=== PATIENT | male | born 1985 | race Caucasian/White ===

== ENCOUNTER 2019-04-04 09:11 | Inpatient (IN) | payer OTHER ==
[~2019-04-04] VITALS: Ht 180.3 cm; Wt 133.2 kg
[2019-04-04 09:18] VITALS: BP 177/91
[2019-04-04 09:45] LABS: ABSOLUTE BASOPHILS 0.1 thou/uL (0.0-0.2); ABSOLUTE LYMPHOCYTES 1.3 thou/uL (0.8-5.3); ABSOLUTE MONOCYTES 0.3 thou/uL (0.0-1.2); ABSOLUTE NEUTROPHILS 7.6 thou/uL (1.6-8.1); BASOPHILS 0.6 %; EOSINOPHILS 0.4 %; HEMATOCRIT 44.2 % (42.0-52.0); HEMOGLOBIN 15.3 gm/dL (14.0-18.0); LYMPHOCYTES 13.6 %; MCHC 34.7 g/dL (28.0-37.0); MCV 89.3 fL (80.0-100.0); MONOCYTES 3.4 %; MPV 8.3 fl. (7.2-11.1); NUCLEATED RBCS 0 /100WBC; PLATELET COUNT* 379 thou/uL (150-400); RBC 4.95 mil/uL (4.50-6.00); RDW-CV 13.4 % (10.5-14.5); WBC 9.3 thou/uL (4.0-11.0)
[2019-04-04 09:55] LABS: CALCIUM 8.1 mg/dL (8.5-10.1); CREATININE 1.2 mg/dL (0.6-1.3); POTASSIUM 3.3 mmol/L (3.5-5.1)
[2019-04-04 09:59] LABS: ALBUMIN 2.9 g/dL (3.4-5.0); TOTAL BILIRUBIN 0.3 mg/dL (<0.1-1.0); TOTAL PROTEIN 7.3 g/dL (6.4-8.2)
[2019-04-04 12:26] VITALS: BP 180/99
--- NOTE | 2019-04-04 14:15 | EKG ---
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
[2019-04-04 17:19] LABS: HEMATOCRIT 47.9 % (42.0-52.0); HEMOGLOBIN 16.3 gm/dL (14.0-18.0); MCH 30.6 pg (26.0-34.0); MCV 90.1 fL (80.0-100.0); MPV 8.8 fl. (7.2-11.1); RBC 5.32 mil/uL (4.50-6.00); RDW-CV 13.6 % (10.5-14.5); WBC 6.1 thou/uL (4.0-11.0)
[2019-04-04 20:38] LABS: HEMATOCRIT 51.8 % (42.0-52.0); HEMOGLOBIN 17.5 gm/dL (14.0-18.0); MCH 30.8 pg (26.0-34.0); MCHC 33.8 g/dL (28.0-37.0); MCV 90.9 fL (80.0-100.0); MPV 8.8 fl. (7.2-11.1); RBC 5.7 mil/uL (4.50-6.00); RDW-CV 13.6 % (10.5-14.5); WBC 8.1 thou/uL (4.0-11.0)
[2019-04-04 20:47] LABS: INR 1.3
[2019-04-04 20:51] LABS: CALCIUM 7.2 mg/dL (8.5-10.1); CREATININE 1.5 mg/dL (0.6-1.3)
[2019-04-04 20:53] LABS: POTASSIUM 4.9 mmol/L (3.5-5.1)
[2019-04-04 20:56] LABS: ALBUMIN 1.9 g/dL (3.4-5.0); MAGNESIUM 1.4 mg/dL (1.8-2.4); PHOSPHORUS* 5.6 mg/dL (2.5-4.9); TOTAL BILIRUBIN 0.9 mg/dL (<0.1-1.0); TOTAL PROTEIN 5.3 g/dL (6.4-8.2)
[2019-04-04 20:59] VITALS: BP 118/79
[2019-04-04 22:00] VITALS: BP 118/85
[2019-04-04 23:00] VITALS: BP 121/84
[2019-04-04 23:06] LABS: URINE BLOOD 2+ (Negative); URINE CLARITY CLEAR; URINE COLOR DARK YELLOW; URINE GLUCOSE-RANDOM NEGATIVE (Negative); URINE KETONES NEGATIVE (Negative); URINE LEUKOCYTES NEGATIVE (Negative); URINE NITRITE NEGATIVE (Negative); URINE PROTEIN 1+ (Negative); URINE SPECIFIC GRAVITY >= 1.030 (1.005-1.030)
[2019-04-04 23:07] LABS: ICTOTEST (BILI CONFIRMATORY) Negative (Negative); URINE BILIRUBIN 1+ (Negative)
[2019-04-04 23:15] LABS: HYALINE CASTS 4-10 Moderate /LPF (None Seen)
[2019-04-04 23:16] LABS: BACTERIA 1-9 Few /HPF (None Seen); CRYSTALS None Seen /LPF (None Seen); MUCUS None Seen strn/LPF (None Seen); SQUAMOUS NONE SEEN /LPF (0-3); URINE WBC 0-5 Rare /HPF (0-5)
[2019-04-05] VITALS (16 sets, daily range): BP systolic 115–184; BP diastolic 76–116
[2019-04-05 03:48] LABS: ABSOLUTE MONOCYTES 0.8 thou/uL (0.0-1.2); ABSOLUTE NEUTROPHILS 10.1 thou/uL (1.6-8.1); BASOPHILS 0.1 %; HEMATOCRIT 50.4 % (42.0-52.0); HEMOGLOBIN 17.1 gm/dL (14.0-18.0); LYMPHOCYTES 8.2 %; MCH 30.7 pg (26.0-34.0); MCV 90.3 fL (80.0-100.0); MPV 8.8 fl. (7.2-11.1); NUCLEATED RBCS 0 /100WBC; PLATELET COUNT* 325 thou/uL (150-400); POLYS 84.7 %; RBC 5.58 mil/uL (4.50-6.00); RDW-CV 13.8 % (10.5-14.5); WBC 11.9 thou/uL (4.0-11.0)
[2019-04-05 03:58] LABS: ALBUMIN 1.8 g/dL (3.4-5.0); CALCIUM 7.2 mg/dL (8.5-10.1); CREATININE 1.6 mg/dL (0.6-1.3); PHOSPHORUS* 5.3 mg/dL (2.5-4.9); POTASSIUM 4.5 mmol/L (3.5-5.1); TOTAL BILIRUBIN 0.6 mg/dL (<0.1-1.0); TOTAL PROTEIN 5.7 g/dL (6.4-8.2)
[2019-04-06 00:45] VITALS: BP 142/90
[2019-04-06 03:45] VITALS: BP 153/87
[2019-04-06 04:10] LABS: HEMATOCRIT 39.4 % (42.0-52.0); MCH 30.4 pg (26.0-34.0); MCHC 33.6 g/dL (28.0-37.0); MCV 90.4 fL (80.0-100.0); MPV 8.4 fl. (7.2-11.1); RBC 4.35 mil/uL (4.50-6.00); RDW-CV 13.8 % (10.5-14.5)
[2019-04-06 04:15] LABS: HEMOGLOBIN 13.2 gm/dL (14.0-18.0)
[2019-04-06 04:16] LABS: INR 1.1
[2019-04-06 04:27] LABS: ALBUMIN 1.8 g/dL (3.4-5.0); CREATININE 1.5 mg/dL (0.6-1.3); MAGNESIUM 2.4 mg/dL (1.8-2.4); PHOSPHORUS* 2.3 mg/dL (2.5-4.9); POTASSIUM 3.9 mmol/L (3.5-5.1); TOTAL BILIRUBIN 0.3 mg/dL (<0.1-1.0); TOTAL PROTEIN 5.9 g/dL (6.4-8.2)
[2019-04-06 07:10] VITALS: BP 157/86
[2019-04-06 16:00] VITALS: BP 151/87
[2019-04-06 19:30] VITALS: BP 174/99
[2019-04-07 07:30] VITALS: BP 145/83
[2019-04-07 08:06] LABS: HEMOGLOBIN 12.2 gm/dL (14.0-18.0); MCH 30.4 pg (26.0-34.0); MCHC 33.9 g/dL (28.0-37.0); MCV 89.8 fL (80.0-100.0); MPV 8.6 fl. (7.2-11.1); RBC 4.01 mil/uL (4.50-6.00)
[2019-04-07 08:14] LABS: CALCIUM 8.1 mg/dL (8.5-10.1); CREATININE 1.1 mg/dL (0.6-1.3); MAGNESIUM 2.2 mg/dL (1.8-2.4); POTASSIUM 3.6 mmol/L (3.5-5.1)
[2019-04-07 17:43] VITALS: BP 154/94
[2019-04-07 19:20] VITALS: BP 162/105
[2019-04-08 04:03] LABS: HEMATOCRIT 35.3 % (42.0-52.0); HEMOGLOBIN 11.9 gm/dL (14.0-18.0); MCH 30.3 pg (26.0-34.0); MCHC 33.8 g/dL (28.0-37.0); MCV 89.7 fL (80.0-100.0); MPV 8.9 fl. (7.2-11.1); RBC 3.94 mil/uL (4.50-6.00); RDW-CV 13.4 % (10.5-14.5); WBC 21.5 thou/uL (4.0-11.0)
[2019-04-08 04:05] LABS: CALCIUM 7.9 mg/dL (8.5-10.1); POTASSIUM 3.5 mmol/L (3.5-5.1)
[2019-04-08 10:53] VITALS: BP 156/99
[2019-04-08 16:50] VITALS: BP 166/93
[2019-04-08 19:45] VITALS: BP 155/75
[2019-04-09 04:46] LABS: HEMATOCRIT 35.7 % (42.0-52.0); HEMOGLOBIN 12.1 gm/dL (14.0-18.0); MCH 30.1 pg (26.0-34.0); MCHC 33.8 g/dL (28.0-37.0); MCV 89.1 fL (80.0-100.0); MPV 8.2 fl. (7.2-11.1); NUCLEATED RBCS 0 /100WBC; PLATELET COUNT* 283 thou/uL (150-400); RBC 4.01 mil/uL (4.50-6.00); RDW-CV 13.6 % (10.5-14.5); WBC 18.1 thou/uL (4.0-11.0)
[2019-04-09 04:54] LABS: CALCIUM 8.2 mg/dL (8.5-10.1); MAGNESIUM 1.9 mg/dL (1.8-2.4); PHOSPHORUS* 3.1 mg/dL (2.5-4.9); POTASSIUM 3.1 mmol/L (3.5-5.1)
[2019-04-09 05:33] LABS: ABSOLUTE EOSINOPHILS 0.4 thou/uL (0.0-0.7); ABSOLUTE LYMPHOCYTES 1.3 thou/uL (0.8-5.3); ABSOLUTE MONOCYTES 1.3 thou/uL (0.0-1.2); ABSOLUTE NEUTROPHILS 15.2 thou/uL (1.6-8.1); ANISOCYTOSIS 1+; PLATELET ESTIMATE ADEQUATE; POIKILOCYTOSIS 1+
[2019-04-09 07:45] VITALS: BP 170/93
--- NOTE | 2019-04-09 15:07 | PATH ---
[address] [address] PATHOLOGY RPT PROCEDURE Name: JEFERSONSUZANNA Room: [address] IN M.R.#: [id number] Admission: 04/04/19 Date of : 85 Discharge: Report #: [id number] Path Case #: [id number] [facility] Accession Number: [id number] . 01 Material submitted: . PART A: colon - RIGHT COLON TERMINAL ILEUM. Modifiers: right PART B: sigmoid colon - SIGMOID COLON SUTURE IS DISTAL . 01 Clinician provided ICD-10: n . 01 Clinical history: . Perforated viscus Perforated sigmoid colon Perforated terminal ileum . 02 Diagnosis: A. Right colon, terminal ileum: - Segment of benign terminal ileum, appendix, colon and omental fat, with grossly identified transmural defect in terminal ileum as well as two additional grossly identified punctate defects in ascending colon in association with marked acute serositis and hyperplastic Peyer's patches in terminal ileum. See comment. . B. Sigmoid colon: - Segment of benign colon with severe diverticular disease including chronic and acute diverticulitis with transmural perforation and extensive acute serositis. - Benign skin. . (MARINA:pit; 04/09/2019) QTP 04/09/2019 1223 Local . 02 Comment: Review of Dr. Sukhwinder Del Rosario's postoperative report dated 04/04/2019 reveals postoperative findings of perforated sigmoid colon, intraabdominal abscess, small bowel to sigmoid colon abscess and small bowel perforation. . Sections of the grossly identified transmural terminal ileal defect (A2) show acute inflammation, some necrotic fat and fresh hemorrhage. Sections of the grossly identified ascending colon defect (A3, A4-A5) show necrotic fat with minimal inflammatory changes, suggesting these latter two defects to have occurred perioperatively or possibly in association with postoperative manipulation because of the friable tissues. (MARINA:pit; 04/09/2019) . 02 Electronically signed: . Dequan Rangel MD, [place] [address] PATHOLOGY RPT PROCEDURE Name: SUZANNA DAWSON Room: [address] IN [facility]#: [id number] Admission: 04/04/19 Date of : 85 Discharge: Report #: [id number] Path Case #: [id number] [facility]- [id number] . 01 Gross description: . A. The specimen is received in formalin, labeled "Suzanna Dawson, right colon terminal ileum" and consists of a right hemicolectomy with terminal ileum (14.7 cm in length and up to 2.3 cm diameter), appendix (6.0 cm in length and 0.7 cm in diameter), ascending colon/cecum (20.0 cm in length and up to 6.4 cm in diameter), pericolic fat measures up to 4.5 cm, and omentum (12.3 x 9.8 cm). Both margins are closed with gualberto. The terminal ileum serosa is pink-mcintyre with a transmural defect measuring 1.5 cm that is 2.7 cm from the proximal margin. The terminal ileum mucosa is green gates with bright pink-red Peyer's patches measuring 6.0 x 4.5 cm. The cecum/ascending colon mucosa is brown-gates with flattened folds and 2 punctate defects that are greater than 9 cm from the distal margin and 4.0 cm from the ileocecal valve. The defects show no fresh hemorrhage or gross inflammation. No additional mucosal masses or lesions are identified. The appendix shows a partially fibrous tip and dilated lumen containing brown fecal material. The omentum reveals no masses or lesions. Student Life Dean sections are submitted as follows: . A1: Proximal margin A2: Terminal ileum defect A3: Ascending colon perforation nearest ileocecal valve A4-A5: Ascending colon perforation nearest distal margin A6: Distal margin A7: Distal terminal ileum mucosa A8: Appendix A9: Omentum . B. The specimen is received in formalin, labeled "Suzanna Dawson, sigmoid colon suture is distal" and consists of a segment of colon measuring 14.0 cm in length and up to 4.0 cm in diameter with a suture designating distal. Both margins are closed with gualberto. There is attached mesocolic fat measuring up to 6.5 cm which is markedly hemorrhagic with necrosis. The serosa is pink-gates smooth shiny. Opening reveals a fibrotic thickened wall with no polyps or mass lesions. There is a perforation that is 5.5 cm from the distal margin. Further sectioning reveals the perforation originated from a diverticulum. No additional diverticula are identified. Also received is a segment of yellow lobulated tissue measuring 4.7 x 4.5 x 2.5 cm with an attached segment of pink gates possible skin measuring 1.8 x 1.5 cm. Sectioning reveals homogeneous yellow lobulated cut surfaces and no gross lesions. Student Life Dean sections are submitted as follows: . B1: Distal margin B2: Proximal margin B3-B5: Perforation B6: Additionally received segment of adipose tissue and skin (SDY; 04/06/2019) [address] [address] PATHOLOGY RPT PROCEDURE Name: SUZANNA DAWSON Room: [address] IN [facility].#: [id number] Admission: 04/04/19 Date of : 85 Discharge: Report #: [id number] Path Case #: [id number] SYU/SYU 04/09/2019 1156 Local . 02 Pathologist provided ICD-10: K65.8, K63.9, K57.32 . 02 CPT . 786001, 693925 Specimen Comment: A courtesy copy of this report has been sent to [phone] Specimen Comment: Report sent to Performed at: 01 [facility] [address], [place], [place] [id number] MD Logan Jarrett MD Phone: [phone] Performed at: [address] [facility] [address], [place], [place] [id number] MD Dequan Rangel MD Phone: [phone]
[2019-04-09 15:22] VITALS: BP 147/83
[2019-04-09 19:40] VITALS: BP 154/87
[2019-04-10 07:30] VITALS: BP 163/92
[2019-04-10 08:52] LABS: ABSOLUTE BASOPHILS 0.2 thou/uL (0.0-0.2); ABSOLUTE EOSINOPHILS 0.4 thou/uL (0.0-0.7); ABSOLUTE LYMPHOCYTES 1.2 thou/uL (0.8-5.3); ABSOLUTE MONOCYTES 1.5 thou/uL (0.0-1.2); ABSOLUTE NEUTROPHILS 11.7 thou/uL (1.6-8.1); BASOPHILS 1.3 %; EOSINOPHILS 2.6 %; HEMATOCRIT 36.6 % (42.0-52.0); HEMOGLOBIN 12.6 gm/dL (14.0-18.0); LYMPHOCYTES 7.9 %; MCH 30.3 pg (26.0-34.0); MCHC 34.5 g/dL (28.0-37.0); MCV 87.7 fL (80.0-100.0); MONOCYTES 9.8 %; MPV 8.1 fl. (7.2-11.1); NUCLEATED RBCS 0 /100WBC; PLATELET COUNT* 294 thou/uL (150-400); POLYS 78.4 %; RBC 4.17 mil/uL (4.50-6.00); RDW-CV 13.7 % (10.5-14.5); WBC 14.9 thou/uL (4.0-11.0)
--- NOTE | 2019-04-10 10:36 | OP ---
[address] [address] OPERATIVE REPORT Name: SUZANNA GOVEA Room: [address] IN M.R.#: [id number] Admission: 04/04/19 Attend Phys: Elvira Bello Discharge: Date of : 85 Report #: [id number] THIS REPORT FOR: //name// CC: LINDA physician/PCP Shaggy Meyer DATE OF SERVICE: 04/04/2019 SURGEON: Dr. Shaggy Meyer. SALES AND MERCHANDISING REPRESENTATIVE: Dr. Sukhwinder Del Rosario. PREOPERATIVE DIAGNOSES: 1. Septic shock. 2. Perforated viscus. 3. Peritonitis. POSTOPERATIVE DIAGNOSES: 1. Septic shock. 2. Perforated terminal ileum. 3. Perforated sigmoid colon. 4. Peritonitis, purulent. INDICATIONS: The patient presented to the Emergency Department with 4-5 days of abdominal pain. His pain significantly worsened the morning of his presentation, prompting his ER visit. His vital signs revealed tachycardia in the 130s and he was normotensive. He was diaphoretic. He had peritoneal signs with a rigid abdomen. A CT scan done while in the Emergency Department revealed free intraperitoneal air with a significant amount of intraperitoneal fluid. Exploratory laparotomy was indicated. The risks and benefits of surgery were explained fully to the patient and he agreed to proceed with the operation. Risks explained included bleeding, infection, damage to nearby structures, anastomotic breakdown, and hernia. OPERATIVE DESCRIPTION: The patient was taken to the operating theater and placed in the supine position. General anesthesia was induced and he did require a small amount of vasopressors during induction. The patient's abdomen was prepped and draped in the standard sterile fashion. Bilateral SCDs were placed. He had been receiving Zosyn preoperatively. A timeout was performed and all were in agreement. A celiotomy incision was made with a 10 blade scalpel from his mid upper abdomen to 4 fingerbreadths above his pubic symphysis. Dissection was carried out through the subcutaneous tissue using electrocautery until the midline fascia was appreciated. The midline fascia, just above the umbilicus, [place] [address] OPERATIVE REPORT Name: SUZANNA GOVEA Room: [address] IN [facility].#: [id number] Admission: 04/04/19 Attend Phys: Elvira Bello Discharge: Date of : 85 Report #: [id number] electrocautery and elevated. The abdomen was entered bluntly using a hemostat. Once the peritoneum was opened, a large amount of purulent fluid started seeping out. The entirety of the incision was opened over our fingers to ensure no injury to the underlying bowel using electrocautery. The abdomen was suctioned out. There was four quadrant purulence. On inspection, the distal small bowel appeared to be adhered to the sigmoid colon. There is a large inflammatory mass and abscess in this area. The small bowel was run from the ligament of Treitz to the cecum revealing no injuries or mesenteric defects until the terminal ileum where a 1-2 cm transmural defect was appreciated. Part of the terminal ileum appeared to have fistulized to the sigmoid colon. This was taken down using blunt and sharp dissection. Next, the colon was run from the cecum to the rectum, there were no colonic defects or injuries until the sigmoid colon was reached. At the sigmoid colon, near the abscess cavity, there is approximately a 4 cm perforation on the medial side adjacent to the mesentery. The associeated abscess cavity had already been entered and drained. Next, attention was turned back to the right abdomen and the right colon was mobilized. The white line of Toldt was found and elevated using a right angle and the peritoneal attachments to the colon were taken down using electrocautery. The entire right colon was mobilized. The hepatic flexure was taken down while placing medial and inferior traction on the ascending and transverse colon. The duodenum was visualized and protected. Next, an appropriate place with healthy terminal ileum was found. A hemostat was used to create a mesenteric window and a ARNOL stapler was used to staple the terminal ileum proximal to the perforation. Next, a place on the ascending colon was chosen to for transection. A hemostat was used in attempt to create a mesenteric window and the colon was inadvertantly injured with the hemostat. We could appreciate some friability of the ascending colon and then chose to transect the transverse colon where more healthy tissue was present. A hemostat was then used to create a mesenteric window at the transverse colon proximal to the middle colic vessels. A ARNOL stapler with a blue load was fired across the transverse colon. The terminal ileum and the right colon mesentery were taken using an impact device. Specimen was removed from the operative field. Next, attention was turned to the sigmoid colon. The sigmoid colon was significantly inflamed and the peritoneal attachments and inflammatory adhesions were taken down bluntly and using electrocautery. The white line of Toldt was taken down using electrocautery. The upper rectum was mobilized from its lateral and anterior [address] [address] OPERATIVE REPORT Name: SUZANNA GOVEA Room: [address] IN [facility]#: [id number] Admission: 04/04/19 Attend Phys: Elvira Bello Discharge: Date of : 85 Report #: [id number] attachments. A mesenteric window, distal to the perforation and abscess cavity at the point of the upper rectum, was then created using the impact device and dissection with a right angle. This was done without bleeding. A contour stapler was used to transect the upper rectum. Next, a point proximal to the perforation and healthy sigmoid colon was found for the proximal transection point. A mesenteric window was created with a hemostat and a ARNOL stapler was fired across the proximal sigmoid colon. The sigmoid colon was then taken using the impact device. The specimen was removed from the operative field. Next, a vaqo-dd-otur functional end-to-end ileal transverse colon anastomosis was formed using a stapled technique. The two limbs of bowel were aligned using 3-0 silk and 3-0 silk crotch stitch. One corner of the ileum and transverse colon staple line were removed using curved Nance scissors and the ARNOL blue load stapler was introduced into the ileum and colon and fired to create the common channel. The common enterotomy was then closed using a TA stapler. The TA staple line was then oversewn using 3-0 silk in a Lembert interrupted fashion. The new anastomosis was palpated and patent. Next, the mesenteric defect was closed using a 3-0 Vicryl in a running fashion. An end colostomy site was then created. The skin superior to the left rectus abdominus muscle, just superior to the umbilicus, was grasped with an Allis clamp and a circular incision was made using electrocautery. This was dissected down to the anterior fascia where a cruciate incision was made. The underlying muscles were using Army-Lozano retractors and the posterior fascia was then opened using a cruciate incision. A Amna was placed through the new ostomy site and the proximal sigmoid colon was grasped and pulled through the abdominal wall defect. There appeared to be some tension on the colon so attention was turned back to the peritoneal cavity to further mobilize the descending colon. The splenic flexure was taken down using blunt and electrocautery dissection. The descending colon and distal transverse colon were pulled medial and inferior as colonic peritoneal attachements and ligaments were taken down. The lesser sac was entered using electrocautery to assist with the splenic flexure takedown. Next, the abdomen was irrigated once more and suctioned out. The abdomen appeared hemostatic and the irrigant ran clear. A NG tube was asked to be placed by Anesthesia. They were unsuccessful [place] [address] OPERATIVE REPORT Name: JEFERSONSUZANNA Room: [address] IN [facility]#: [id number] Admission: 04/04/19 Attend Phys: Elvira Bello Discharge: Date of : 85 Report #: [id number] Two DWAYNE drains were then placed. One drain was placed by the new anastomosis and the second drain was placed in the pelvis near the rectal stump. These drains were sewn into place using 2-0 nylon. The superior drain lies next to the anastomosis and the inferior drain lies near the rectal stump. The colon was then pulled through the ostomy site with a amna with no tension. The fascia was then closed using 2 looped #1 PDS sutures. The incision was then covered with a blue towel. Attention was turned to the ostomy creation. The staple line was cut off using curved Nance scissors and adequate bleeding was appreciated. The ostomy was matured using 3-0 Vicryl sutures at 12, 6, 3 and 9 o'clock. A 3-0 vicryl suture was thne placed in between each of these to ensure good approximation of the colon with the skin. Once this was completed, the blue towel was removed from the midline incision and the wound was irrigated. Paul were used to close the midline incision. An ostomy appliance was placed. This completed the procedure. All sponge, needle and instrument counts were correct x 2. ESTIMATED BLOOD LOSS: 75 mL. COMPLICATIONS: None. FINDINGS: Perforated terminal ileum, perforated sigmoid colon, ileosigmoid fistula. ANESTHESIA: General endotracheal anesthesia. DRAINS: Two Walter-Bar drains, one near the anastomosis and one in the pelvis. DISPOSITION: The patient was extubated in the operating theater without complication and taken to the PACU in stable condition. <ELECTRONICALLY SIGNED> By: Shaggy Meyer DO 04/10/19 1036 [id number] Meyer DO /nt
[2019-04-10 16:00] VITALS: BP 156/83
[2019-04-10 20:20] VITALS: BP 152/93
[2019-04-11 06:56] VITALS: BP 152/93
[2019-04-11 07:25] VITALS: BP 148/95
[2019-04-11 08:48] VITALS: BP 152/93
[2019-04-11 08:50] VITALS: BP 152/93
[2019-04-11] MEDS ORDERED: TYLENOL ARTHRI650 MG PO (08:52)
[2019-04-11] MEDS ORDERED: IBU600 MG PO (08:53)
[2019-04-11] MEDS ORDERED: AUGMENTIN 875-1 EACH PO (08:54)
[2019-04-11] MEDS ORDERED: OXYCODONE HCL 55 MG PO (08:55)
[2019-04-11 08:57] VITALS: BP 152/93
[2019-04-11 10:30] VITALS: BP 152/93
== END 2019-04-11 10:31 | disposition home health service (06) | DRG 853 ==
LOC: M.ERS 09:11 → M.SUR 09:11 → M.ERS 12:26 → M.TBA-CV 13:07 → M.ORTHSURG 13:07 → M.ICU 13:07 → M.3W 04-05 15:55 → M.ORTHSURG 04-07 15:58
PROVIDERS: Anesthesiology; Emergency Medicine; Surgery; ADMIT Surgery
PROC: 0DBN0ZZ Excision of Sigmoid Colon, Open Approach (ICD-10-PCS; principal; 2019-04-04)
PROC: 0DTF0ZZ Resection of Right Large Intestine, Open Approach (ICD-10-PCS; principal; 2019-04-04)
PROC: 0D1L0Z4 Bypass Transverse Colon to Cutaneous, Open Approach (ICD-10-PCS; principal; 2019-04-04)
DX: A41.9 Sepsis, unspecified organism (principal); K63.1 Perforation of intestine (nontraumatic); K65.1 Peritoneal abscess; R65.21 Severe sepsis with septic shock; N17.9 Acute kidney failure, unspecified; K63.2 Fistula of intestine; Z68.41 Body mass index [BMI] 40.0-44.9, adult; F17.210 Nicotine dependence, cigarettes, uncomplicated; E87.6 Hypokalemia; E66.9 Obesity, unspecified; E83.39 Other disorders of phosphorus metabolism; E83.51 Hypocalcemia; E83.42 Hypomagnesemia; Z72.89 Other problems related to lifestyle; Z23 Encounter for immunization

== ENCOUNTER 2019-07-25 09:11 | Emergency (ER) | payer OTHER ==
[~2019-07-25] VITALS: Ht 182.9 cm; Wt 108.9 kg
[~2019-07-25 09:11] MED LIST: AUGMENTIN 875-1 EACH PO; IBU600 MG PO; OXYCODONE HCL 55 MG PO; TYLENOL ARTHRI650 MG PO
[2019-07-25] MEDS ORDERED: NOHOMEMEDICATIONS (09:18)
[2019-07-25 09:40] LABS: ABSOLUTE BASOPHILS 0.1 thou/uL (0.0-0.2); ABSOLUTE EOSINOPHILS 0.4 thou/uL (0.0-0.7); ABSOLUTE LYMPHOCYTES 1.4 thou/uL (0.8-5.3); ABSOLUTE NEUTROPHILS 4.6 thou/uL (1.6-8.1); BASOPHILS 1.1 %; EOSINOPHILS 5.1 %; HEMATOCRIT 47.2 % (42.0-52.0); HEMOGLOBIN 16.1 gm/dL (14.0-18.0); LYMPHOCYTES 19.2 %; MCH 30.4 pg (26.0-34.0); MCHC 34.1 g/dL (28.0-37.0); MONOCYTES 13.3 %; MPV 8.9 fl. (7.2-11.1); NUCLEATED RBCS 0 /100WBC; PLATELET COUNT* 193 thou/uL (150-400); POLYS 61.3 %; RBC 5.31 mil/uL (4.50-6.00); RDW-CV 16.6 % (10.5-14.5); WBC 7.5 thou/uL (4.0-11.0)
[2019-07-25 09:50] LABS: CALCIUM 7.5 mg/dL (8.5-10.1); CREATININE 1.2 mg/dL (0.6-1.3); POTASSIUM 3.6 mmol/L (3.5-5.1)
[2019-07-25 09:54] LABS: APTT 25.9 Seconds (25.0-31.3); PROTIME 10.6 Seconds (9.20-11.50)
[2019-07-25 10:01] LABS: ALBUMIN 3.6 g/dL (3.4-5.0); TOTAL BILIRUBIN 0.2 mg/dL (<0.1-1.0); TOTAL PROTEIN 7.9 g/dL (6.4-8.2)
[2019-07-25 10:24] LABS: ICTOTEST (BILI CONFIRMATORY) Negative (Negative); URINE BILIRUBIN 1+ (Negative); URINE BLOOD NEGATIVE (Negative); URINE CLARITY CLEAR; URINE COLOR YELLOW; URINE GLUCOSE-RANDOM NEGATIVE (Negative); URINE KETONES NEGATIVE (Negative); URINE LEUKOCYTES-REFLEX NEGATIVE (Negative); URINE NITRITE-REFLEX NEGATIVE (Negative); URINE PROTEIN TRACE (Negative); URINE SPECIFIC GRAVITY >= 1.030 (1.005-1.030); URINE UROBILINOGEN 0.2 E.U./dl (0.2-1.0)
[2019-07-25 10:34] VITALS: BP 152/90
--- NOTE | 2019-07-25 13:28 | EKG ---
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: : 1985 Requested By: Oliver Alston Order Number: [id number] MD: Aroldo Mendez Measurements Intervals [place] Rate: 85 P: 40 CA: 152 QRS: 75 QRSD: 97 T: 39 QT: 353 QTc: 420 Interpretive Statements Sinus rhythm ST elev, probable normal early repol pattern Compared to ECG 04/04/2019 09:48:17 Sinus tachycardia no longer present Electronically Signed On 07-25-2019 13:26:55 CDT by Aroldo Mendez [email or web address] <ELECTRONICALLY SIGNED> By: Aroldo Mendez MD, [facility] 07/25/19 1326 0925 Aroldo Mendez MD, [facility] /EPI
== END 2019-07-25 10:30 | disposition home or self-care (01) ==
LOC: M.ERS 09:11
PROVIDERS: Family Medicine
DX: I10 Essential (primary) hypertension (principal); F17.210 Nicotine dependence, cigarettes, uncomplicated; Z79.899 Other long term (current) drug therapy